=== PATIENT | female | born 1995 | race Two or more races ===

== ENCOUNTER 2022-12-12 09:43 | Emergency (ER) | payer OTHER ==
[~2022-12-12] VITALS: Ht 160 cm; Wt 52.2 kg
== END 2022-12-12 12:07 | disposition home or self-care (01) ==
LOC: ER 09:43
DX: S93.402A Sprain of unspecified ligament of left ankle, initial encounter (principal); Y33.XXXA Other specified events, undetermined intent, initial encounter; Y93.I9 Activity, other involving external motion; Y92.9 Unspecified place or not applicable